=== PATIENT | female | born 1990 | race American Indian/Alaskan Native ===

== ENCOUNTER 2017-05-29 20:53 | Emergency (ER) | payer SELFPAY ==
[2017-05-29] MEDS ORDERED: ZOFRAN ONE (21:11)
[2017-05-29] MEDS ORDERED: MORPHINE ONE (21:11)
[2017-05-29] MEDS ORDERED: ZOFRAN IM ONE (21:20)
[2017-05-29] MEDS ORDERED: MORPHINE IM ONE (21:20)
[2017-05-29] MEDS ORDERED: NORCO 10/325 PO ONE (22:23)
[2017-05-29] MEDS ORDERED: NORCO 10/325 ONE (22:28)
[2017-05-29] MEDS ORDERED: TORADOL IM ONE (23:56)
--- NOTE | 2017-05-30 02:47 | Emergency Department Report ---
ED Lower Extremity HPI - General Chief Complaint: Extremity Injury, Lower Stated Complaint: POSSIBLE LT BROKEN ANKLE Time Seen by Provider: 05/29/17 23:29 Source: patient Mode of arrival: Ambulatory Limitations: No Limitations - History of Present Illness Initial Comments: Pt was playing with her boyfriend, duing the ha, she jump off a hill, about 5 feet high. Pt landed on her left foot and ankle. Pt denies LOC Pt has obvious deformity,, left foot an ankle MD Complaint: ankle injury (left), foot injury (left) -: Sudden Injury: Ankle: Left (obvious deformity), Foot: Left (obvious deformity) Type of Injury: blunt Place: street/outdoors Severity: severe Severity scale (0 -10): 10 Improves With: immobilization Worsens With: weight bearing, movement, palpation Context: jumping Associated Symptoms: snap/pop sensation, swelling, numbness, tingling, unable to bear weight, able to partially bear weight - Related Data Previous Rx's Medication Instructions Recorded Last Taken Type HYDROcodone/APAP 5-325 [[place] 1 each PO Q6HR PRN #20 tablet 05/30/17 Unknown Rx 5/325] Ibuprofen [Motrin 600 MG tab] 600 mg PO Q8H PRN #30 tablet 05/30/17 Unknown Rx Allergies Allergy/AdvReac Type Severity Reaction Status Date / Time No Known Allergies Allergy Verified 05/29/17 21:08 ED Review of Systems ROS: Stated complaint: POSSIBLE LT BROKEN ANKLE Other details as noted in HPI Comment: All other systems reviewed and negative Musculoskeletal: as per HPI, joint swelling, arthralgia, myalgia, other ( obvious deformity of left benton and foot) ED Past Medical Hx - Past Medical History Previous Medical History?: No - Surgical History Past Surgical History?: No - Social History Smoking Status: Never Smoker Substance Use Type: None - Medications Home Medications: Home Medications Medication Instructions Recorded Confirmed Last Taken Type HYDROcodone/APAP 5-325 [[place] 1 each PO Q6HR PRN #20 tablet 05/30/17 Unknown Rx 5/325] Ibuprofen [Motrin 600 MG tab] 600 mg PO Q8H PRN #30 tablet 05/30/17 Unknown Rx ED Physical Exam - General Limitations: No Limitations General appearance: alert, anxious, in distress (moderate to severe) - Head Head exam: Present: atraumatic, normocephalic - Eye Eye exam: Present: normal appearance, PERRL, EOMI - ENT ENT exam: Present: normal exam, normal orophraynx, mucous membranes moist - Neck Neck exam: Present: normal inspection, full ROM. Absent: tenderness, lymphadenopathy - Respiratory Respiratory exam: Present: normal lung sounds bilaterally. Absent: respiratory distress, wheezes, rales, rhonchi, chest wall tenderness, accessory muscle use, decreased breath sounds, prolonged expiratory - Cardiovascular Cardiovascular Exam: Present: regular rate, normal rhythm, normal heart sounds - GI/Abdominal GI/Abdominal exam: Present: soft, normal bowel sounds. Absent: tenderness, guarding, rebound - Rectal Rectal exam: Present: deferred - Expanded Lower Extremity Exam Left Hip exam: Present: full ROM. Absent: tenderness, ecchymosis Upper Leg exam: Present: normal inspection. Absent: full ROM, tenderness, abrasion Knee exam: Present: normal inspection, full ROM. Absent: tenderness Lower Leg exam: Present: normal inspection, full ROM, swelling. Absent: tenderness, laceration Ankle exam: Present: tenderness, swelling, deformity, erythema Foot/Toe exam: Present: tenderness, swelling, calcaneal tenderness Neuro vascular tendon exam: Present: no vascular compromise ED Course Vital Signs 05/29/17 05/29/17 05/29/17 21:09 21:32 21:34 Temperature 98 F Pulse Rate 72 75 Respiratory 16 21 Rate Blood Pressure 144/87 Blood Pressure [Left] O2 Sat by Pulse 100 100 99 Oximetry 05/29/17 05/29/17 05/29/17 21:36 21:38 21:40 Temperature Pulse Rate 69 84 70 Respiratory 13 13 16 Rate Blood Pressure 144/87 144/87 144/87 Blood Pressure [Left] O2 Sat by Pulse 100 99 100 Oximetry 05/29/17 05/29/17 05/29/17 21:42 21:44 21:46 Temperature Pulse Rate 81 69 70 Respiratory 13 15 15 Rate Blood Pressure 144/87 144/87 144/87 Blood Pressure [Left] O2 Sat by Pulse 99 100 100 Oximetry 05/29/17 05/29/17 05/29/17 21:48 21:50 21:52 Temperature Pulse Rate 72 72 82 Respiratory 13 15 20 Rate Blood Pressure 144/87 144/87 144/87 Blood Pressure [Left] O2 Sat by Pulse 99 100 100 Oximetry 0905/29/17 05/29/17 21:54 21:56 21:58 Temperature Pulse Rate 72 74 74 Respiratory 19 20 13 Rate Blood Pressure 144/87 144/87 144/87 Blood Pressure [Left] O2 Sat by Pulse 98 100 73 L Oximetry 05/29/17 05/29/17 05/29/17 22:00 22:02 22:04 Temperature Pulse Rate 77 81 72 Respiratory 16 15 14 Rate Blood Pressure 125/83 125/83 125/83 Blood Pressure [Left] O2 Sat by Pulse 95 99 99 Oximetry 05/29/17 05/29/17 05/29/17 22:06 22:08 22:10 Temperature Pulse Rate 69 76 80 Respiratory 15 12 13 Rate Blood Pressure 125/83 125/83 125/83 Blood Pressure [Left] O2 Sat by Pulse 98 100 100 Oximetry 05/29/17 05/29/17 05/29/17 22:12 22:14 22:16 Temperature Pulse Rate 74 74 83 Respiratory 12 21 20 Rate Blood Pressure 125/83 125/83 125/83 Blood Pressure [Left] O2 Sat by Pulse 100 100 100 Oximetry 05/29/17 05/29/17 05/29/17 22:18 22:20 22:22 Temperature Pulse Rate 80 75 102 H Respiratory 17 21 27 H Rate Blood Pressure 125/83 125/83 125/83 Blood Pressure [Left] O2 Sat by Pulse 98 100 99 Oximetry 05/29/17 05/29/17 05/29/17 22:24 22:26 22:28 Temperature Pulse Rate 81 71 81 Respiratory 22 17 14 Rate Blood Pressure 125/83 125/83 125/83 Blood Pressure [Left] O2 Sat by Pulse 99 100 100 Oximetry 05/29/17 05/29/17 05/29/17 22:30 22:32 22:34 Temperature Pulse Rate 78 79 Respiratory 16 18 Rate Blood Pressure 125/83 125/83 125/83 Blood Pressure [Left] O2 Sat by Pulse 100 100 99 Oximetry 05/29/17 05/29/17 05/29/17 22:36 22:38 22:40 Temperature Pulse Rate 81 81 73 Respiratory 27 H 15 21 Rate Blood Pressure 125/83 125/83 125/83 Blood Pressure [Left] O2 Sat by Pulse 78 L 94 98 Oximetry 05/29/17 05/29/17 05/29/17 22:42 22:44 22:46 Temperature Pulse Rate 75 71 76 Respiratory 25 H 22 12 Rate Blood Pressure 125/83 125/83 125/83 Blood Pressure [Left] O2 Sat by Pulse 80 L 99 97 Oximetry 05/29/17 05/29/17 05/29/17 22:48 22:50 23:50 Temperature Pulse Rate Respiratory 18 Rate Blood Pressure 125/83 125/83 Blood Pressure [Left] O2 Sat by Pulse 93 100 Oximetry 05/30/17 01:15 Temperature 98.5 F Pulse Rate 80 Respiratory 18 Rate Blood Pressure Blood Pressure 120/79 [Left] O2 Sat by Pulse 98 Oximetry Critical care attestation.: If time is entered above; I have spent that time in minutes in the direct care of this critically ill patient, excluding procedure time. ED Disposition Clinical Impression: Left calcaneal fracture Disposition: - TO HOME OR SELFCARE Is pt being admited?: No Does the pt Need Aspirin: No Condition: Stable Instructions: Calcaneal Fracture (ED) Additional Instructions: None weight bearing on your left foot, use crutches to assist your gait. Follow up with Dr Erickson Orthopedic surgeon Prescriptions: HYDROcodone/APAP 5-325 [[place] 5/325] 1 each PO Q6HR PRN #20 tablet PRN Reason: Pain Ibuprofen [Motrin 600 MG tab] 600 mg PO Q8H PRN #30 tablet PRN Reason: Pain Referrals: PRIMARY MD MARQUITA [Primary Care Provider] - 3-5 Days SHEN ERICKSON MD [Staff Physician] - 3-5 Days Time of Disposition: 02:47
[2017-05-30 03:12] VITALS: BP 120/79
--- NOTE | 2017-05-30 09:29 | XRay Report ---
X-RAY LEFT FOOT THREE VIEWS: 05/29/17 23:55:00 CLINICAL: Trauma and pain. FINDINGS: A transverse comminuted displaced calcaneal fracture with both longitudinal and transverse components. Suspect talocalcaneal dislocation. The ankle mortise is intact and the talonavicular joint is intact. No other fractures. Soft tissue swelling but no foreign body or soft tissue air. IMPRESSION: Acute traumatic displaced comminuted calcaneal fracture and possible and probable talocalcaneal dislocation.
--- NOTE | 2017-05-30 09:31 | XRay Report ---
X-RAY LEFT ANKLE THREE VIEWS: 05/29/17 20:53:00 CLINICAL: Fall with pain and swelling. FINDINGS: Ankle mortise is intact. Marked lateral soft tissue swelling. Comminuted displaced calcaneal fracture and suspected talocalcaneal dislocation. No soft tissue air or foreign body. IMPRESSION: Acute traumatic displaced comminuted calcaneal fracture and probable talocalcaneal dislocation.
== END 2017-05-30 03:06 | disposition home or self-care (01) ==
LOC: ED 20:53
DX: S92.002A Unspecified fracture of left calcaneus, initial encounter for closed fracture (principal); W17.89XA Other fall from one level to another, initial encounter; Y93.39 Activity, other involving climbing, rappelling and jumping off; Y99.9 Unspecified external cause status; Y92.89 Other specified places as the place of occurrence of the external cause
CPT/HCPCS: 73600; 73630; 96372; 99283; J1885; J2270; J2405